=== PATIENT | female | born 1980 | race Caucasian/White ===

== ENCOUNTER 2025-01-01 09:11 | Inpatient (IN) ==
[2025-01-01 10:23] LABS: Hematocrit (blood only) 40.8 % (37.0-47.0); Hemoglobin 14.1 g/dl (12.0-16.0); Immature Granulocytes # (auto) 0.02 K/uL (0.01-0.20); Immature Granulocytes % (auto) 0.2 %; Mean Corpuscular Hemoglobin 29.3 pg (25.0-34.0); Mean Corpuscular Volume 84.6 fL (80.0-100.0); Platelet Count 282 K/uL (130-400); RDW Standard Deviation 38.4 fL (36.4-46.3); Red Blood Count 4.82 M/uL (4.20-5.40); White Blood Count 9.39 K/ul (4.8-10.8)
[2025-01-01 10:31] LABS: Alanine Aminotransferase 13.0 U/L (7-52); Albumin Globulin Ratio 1.7 (0.9-2); Albumin Level 5.2 gm/dl (3.4-5.0); Alkaline Phosphatase 50.0 U/L (34-104); Anion Gap 10.0 (3-11); Bilirubin,Total 1.3 mg/dl (0.2-1.0); Blood Urea Nitrogen 5.0 mg/dl (6-23); Calcium 9.7 mg/dl (8.6-10.3); Carbon Dioxide 26.0 mmol/L (21-32); Chloride 97.0 mmol/L (98-107); Creatinine Clr Calc Pharmacy 83.8 ml/min; Globulin 3.0 gm/dl (2.5-4.0); Glucose 110.0 mg/dl (70-99(Fasting)); Potassium 2.9 mmol/L (3.5-5.1); Sodium 133.0 mmol/L (136-145); Total Protein 8.2 gm/dl (6.0-8.3)
--- NOTE | 2025-01-01 10:32 | Emergency Department Note ---
Impression & Plan Major depression with psychotic features, Acute hyponatremia, Acute hypokalemia, Acute dehydration ED Provider Note NAME: WAQAR SNOW AGE: 44 SEX: F : 1980 ARRIVES VIA: Walk-In INFORMANT: Patient, ED PROVIDER(S): rBian Cramer DO CHIEF COMPLAINT: psychiatric evaluation HPI: This is a 44-year-old female with the PMHx of anxiety and depression presenting to [facility] for further evaluation of psychiatric illness. Patient reports worsening depression and anxiety. She reports intrusive suicidal ideations. She now reports auditory and visual hallucinations. Patient reports largely passive suicidal ideation. No prior suicide attempt. She has been admitted to psychiatric care approximately 4 times in the past. Patient feels like she has been spiraling out of control. Patient feels that she would benefit from inpatient stay. Patient notes anhedonia and lack of appetite and sleep. She reports insomnia. They deny fever or chills. No cough or congestion. Denies chest pain or palpitations. No shortness of breath. They deny abdominal pain, nausea and vomiting. No urinary complaints. No recent changes in bowel movements. Patient denies recent changes in medications or OTC supplements. Patient offers no other complaints, today. ADDITIONAL HISTORY OBTAINED: Per HPI Chronic Medical/Social Conditions Affecting Care: Per HPI PAST MEDICAL HISTORY: See Below PAST SURGICAL HISTORY: See Below FAMILY HISTORY: See Below SOCIAL HISTORY: See Below HOME MEDICATIONS: See Below ALLERGIES: See Below VITALS: See Below PHYSICAL EXAMINATION: GENERAL: Sitting up in bed, alert, well appearing, well nourished, no distress, non-toxic EYE EXAM: normal conjunctiva. PERRL and EOM's grossly intact. OROPHARYNX: no exudate, no erythema, lips, buccal mucosa, and tongue normal and mucous membranes are dry NECK: supple, no nuchal rigidity, no adenopathy, non-tender LUNGS: Clear to auscultation. Normal chest wall mechanics HEART: no murmurs, regular rate, regular rhythm ABDOMEN: abdomen soft, non-tender, no masses, no rebound or guarding. BACK: Back is symmetrical on inspection and there is no deformity, no midline tenderness, no CVA tenderness. SKIN: no rashes and no bruising UPPER EXTREMITIES: upper extremities are grossly normal. LOWER EXTREMITIES: No pitting edema. NEURO EXAM: Normal sensorium, GCS 15, normal speech, no gross weakness of arms, no gross weakness of legs. PSYCH: depressed mood, anxious MEDICAL DECISION MAKING: Differential diagnoses includes but not limited to suicidal ideation, homicidal ideation, hallucinations, depression, anxiety, personality disorder In summary, this is a 44-year-old who presented with suicidal ideations and hallucinations. Differential as above. Nursing notes and pertinent past medical records reviewed. Vital signs reviewed and the patient is afebrile and HDS. History, physical obtained and significant for depression and anxiety with poor access to care as an outpatient. Psychiatric labs including CBC, CMP, ethanol, COVID-19, U tox ordered to evaluate for their symptoms. Labs unremarkable to explain symptoms. Does have mild hyponatremia and hypokalemia. Oral replenishment of potassium ordered. Patient was also given IV fluid resuscitation. Patient was thought to be hypocalcemic and was given IV replenishment. Discussed with her that her calcium was relatively normal and disclosed this to her. 201 to be signed after discussion and informed consent with the patient. Patient is medically appropriate for psychiatric evaluation. Based on the above, including the patient's age, coexisting illnesses, labs, imaging, and exam findings the decision to treat as an inpatient. I discussed my findings with the patient and they understand and agree with the treatment plan. Vitals Q shift ordered. Med rec ordered. Care Management consulted. Diet ordered with suicide precautions and one-to-one precautions. [facility] evaluated the patient for admission and she was subsequently admitted. Consults/Care Managements Discussions: Per [facility] ER treatment provided: See above Procedures: none Critical Care: None The chart was completed utilizing [employer] Speech voice recognition software. Grammatical errors, random word insertions, pronoun errors, and incomplete sentences are an occasional consequence of this system due to software limitations, ambient noise, and hardware issues. Any formal questions or concerns about the content, text, or information contained within the body of this dictation should be directly addressed to the physician for clarification. Past Med/Surg History Problem List (Updated 01/01/25 @ 15:16 by Brian Cramer DO) Acute dehydration (Acute) Acute hypokalemia (Acute) Acute hyponatremia (Acute) Major depression with psychotic features (Acute) Social History Smoking Status: Former smoker Preferred Language: Citizen Of [place] Communication Ability: Effective Vacuum Technician Required: No Beliefs That Will Affect Care: None Feels Safe at Home: Yes Gender Identity: Female Assistive Devices: None Allergies Allergies Allergy/AdvReac Type Severity Reaction Status Date / Time No Known Allergies Allergy Unknown Verified 06/07/06 20:09 Home Meds Home Medications Medication Instructions Recorded Confirmed Multivit/Min/Iron/Fol Ac/Pren ##0 06/08/06 ( Vitamin) Valacyclovir (Valtrex) ##0 06/08/06 Acetaminophen (Tylenol) ##0 06/10/06 Ibuprofen (Advil) ##0 06/10/06 Results & Data (ED) Vital Signs Vital Signs - 24 hr 01/01/25 09:16 01/01/25 11:12 01/01/25 13:00 Temperature 36.5 C Temperature Source Temporal Artery Scan Pulse Rate 93 H Pulse Rate [Finger] 73 71 Respiratory Rate 16 18 18 Respiratory Effort / Characteristics Non-Labored Spontaneous Non-Labored Spontaneous Respiratory Depth Normal Normal Respiratory Pattern Regular Regular Blood Pressure 157/97 H Blood Pressure [Right Arm] 142/98 H 146/89 H Blood Pressure Mean 117 Blood Pressure Mean [Right Arm] 112 108 Pulse Oximetry 99 98 99 Oxygen Delivery Method Room Air Room Air Room Air Sepsis Recent Fever Within 48 Hours No Sepsis New/Unexplained Change in Mental Status N/A Sepsis Action Taken by Nursing No Action Required Laboratory Data 01/01/25 09:36 01/01/25 09:35 Lab Results 01/01/25 01/01/25 01/01/25 Range/Units 09:25 09:35 09:36 WBC 9.39 (4.8-10.8) K/ul RBC 4.82 (4.20-5.40) M/uL Hgb 14.1 (12.0-16.0) g/dl Hct 40.8 (37.0-47.0) % MCV 84.6 (80.0-100.0) fL MCH 29.3 (25.0-34.0) pg MCHC 34.6 (32.0-36.0) g/dL RDW Std Deviation 38.4 (36.4-46.3) fL RDW Coeff of Jani 12.5 (11.5-14.5) % Plt Count 282 (130-400) K/uL MPV 9.8 (9.4-12.4) fL Immature Gran % (Auto) 0.2 % Neut % (Auto) 70.1 % Lymph % (Auto) 23.4 % Pope % (Auto) 5.9 % Eos % (Auto) 0.1 % Baso % (Auto) 0.3 % Neut # (Auto) 6.58 H (1.40-6.50) K/uL Lymph # (Auto) 2.20 (1.20-3.40) K/uL Pope # (Auto) 0.55 (0.11-0.59) K/uL Eos # (Auto) 0.01 (0.00-0.50) K/uL Baso # (Auto) 0.03 (0.00-0.20) K/uL Immature Gran # (Auto) 0.02 (0.01-0.20) K/uL Sodium 133 L (136-145) mmol/L Potassium 2.9 L (3.5-5.1) mmol/L Chloride 97 L (98-107) mmol/L Carbon Dioxide 26 (21-32) mmol/L Anion Gap 10 (3-11) BUN 5 L (6-23) mg/dl Creatinine 0.69 (0.6-1.2) mg/dl Est Cr Clr Drug Dosing 83.8 ml/min eGFR 109.68 BUN/Creatinine Ratio 7.2 L (10-20) Glucose 110 H (70-99(Fasting)) mg/dl Calcium 9.7 (8.6-10.3) mg/dl Total Bilirubin 1.3 H (0.2-1.0) mg/dl AST 21 (13-39) U/L ALT 13 (7-52) U/L Alkaline Phosphatase 50 (34-104) U/L Total Protein 8.2 (6.0-8.3) gm/dl Albumin 5.2 H (3.4-5.0) gm/dl Globulin 3.0 (2.5-4.0) gm/dl Albumin/Globulin Ratio 1.7 (0.9-2) TSH 0.716 (0.300-4.500) uIu/ml Urine Color Yellow Urine Appearance Clear (Clear) Urine pH 7.0 (4.5-7.5) Ur Specific [place] 1.003 (1.000-1.030) Urine Protein Negative (Negative) Urine Glucose (UA) Negative (Negative) Urine Ketones Trace H (Negative) Urine Blood Negative (Negative) Urine Nitrite Negative (Negative) Urine Bilirubin Negative (Negative) Urine Urobilinogen Negative (Negative) Ur Leukocyte Esterase Negative (Negative) Urine Comment Salicylates < 3.0 L (3.0-30) mg/dl Urine Opiates Screen Neg (Neg) Ur Methadone, Qual Neg (Neg) Urine Fentanyl Screen Neg (Neg) Acetaminophen < 3 L (10-30) ug/ml Urine Barbiturates Neg (Neg) Ur Phencyclidine (PCP) Neg (Neg) U Amphetamin/Meth Scrn Neg (Neg) MDMA (Ecstasy) Screen Neg (Neg) U Benzodiazepines Scrn Neg (Neg) Ur Cocaine Metabolite Neg (Neg) U Marijuana (THC) Screen Pos H (Neg) Ethyl Alcohol mg/dL < 10.0 (<10.0) mg/dl SARS-CoV-2, RNA, NAAT NEGATIVE (NEGATIVE) Administered Medications Lamotrigine (Lamotrigine 25 Mg Tab) 25 mg PO QAM [facility]; Protocol Stop: 02/01/25 12:59 Last Admin: 01/02/25 13:22 Dose: 25 mg Documented By: [id number] Magnesium Hydroxide (Magnesium Hydroxide Susp 30 Ml Udc) 30 ml PO DAILY PRN PRN Reason: Constipation Stop: 01/31/25 15:14 Last Admin: 01/02/25 09:11 Dose: 30 ml Documented By: [id number] Admin: 01/01/25 16:45 Dose: 30 ml Documented By: CJG Senna/Docusate Sodium (Docusate Sodium/Senna 50/8.6mg Tab) 1 tab PO BID [facility] Stop: 02/01/25 12:59 Last Admin: 01/02/25 13:21 Dose: 1 tab Documented By: [id number] Discontinued Medications Acetaminophen (Acetaminophen 500 Mg Tab) 1,000 mg PO NOW STA Stop: 01/01/25 10:33 Last Admin: 01/01/25 10:42 Dose: 1,000 mg Documented By: [email or web address] Docusate Sodium (Docusate Sodium 100 Mg Cap) 100 mg PO BID JACY Stop: 01/31/25 20:59 Last Admin: 01/02/25 09:08 Dose: 100 mg Documented By: [id number] Admin: 01/01/25 22:13 Dose: Not Given Documented By: JULIANO Hydroxyzine HCl (Hydroxyzine Hcl 25 Mg Tab) 25 mg PO Q4H PRN PRN Reason: Anxiety Stop: 01/31/25 15:14 Last Admin: 01/02/25 09:08 Dose: 25 mg Documented By: [id number] Sodium Chloride (Nss) 1,000 mls @ 999 mls/hr IV .Q1H1M ONE Stop: 01/01/25 12:26 Last Infusion: 01/01/25 13:27 Dose: Infused Documented By: Admin: 01/01/25 12:23 Dose: 999 mls/hr Documented By: LELIA Calcium Gluconate () 1,000 mg in 60 mls @ 240 mls/hr IV NOW STA Stop: 01/01/25 11:40 Last Infusion: 01/01/25 13:27 Dose: Infused Documented By: Admin: 01/01/25 13:07 Dose: 240 mls/hr Documented By: LELIA Potassium Chloride (Potassium Chloride Crtab 20 Meq Tabcr) 40 meq PO NOW STA Stop: 01/01/25 11:27 Last Admin: 01/01/25 12:24 Dose: 40 meq Documented By: LELIA Potassium Chloride (Potassium Chloride Crtab 20 Meq Tabcr) 40 meq PO NOW STA Stop: 01/01/25 15:17 Last Admin: 01/01/25 16:17 Dose: Not Given Documented By: SRIRAM Discharge Plan Visit Data Chief Complaint: Mental Health Evaluation Stated Complaint: MENTAL HEALTH EVAL ED Provider: Brian Cramer Discharge Problem: Major depression with psychotic features, Acute hyponatremia, Acute hypokalemia, Acute dehydration Patient Disposition: Admitted As Inpatient Condition: Fair Discharge Instructions Interventions: ED Discharge Assessment Last Done: 01/01/25 15:34
[2025-01-01 10:38] LABS: Appearance Urine Clear (Clear); Glucose Urine UA Negative (Negative)
[2025-01-01] MEDS: ACETAMINOPHEN 500 MG TAB PO STA (10:42)
[2025-01-01 10:45] LABS: Thyroid Stimulating Hormone 0.716 uIu/ml (0.300-4.500)
[2025-01-01 10:52] LABS: Acetaminophen < 3 ug/ml (10-30); Salicylate < 3.0 mg/dl (3.0-30)
[2025-01-01 11:02] LABS: Amphetamines+Metham, Urine Neg (Neg); MDMA (Ecstacy), Urine Neg (Neg); Marijuana, Urine Pos (Neg)
[2025-01-01] MEDS: SODIUM CHLORIDE 0.9% 1,000 ML IV ONE (12:23)
[2025-01-01] MEDS: POTASSIUM CHLORIDE CRTAB 20 MEQ TABCR PO STA ×2 (12:24→16:17)
[2025-01-01] MEDS: CALCIUM GLUCONATE 1,000 MG/60 ML BAG IV STA (13:07)
[2025-01-01] MEDS ORDERED: SODIUM CHLORIDE 0.65% NA SOLN 45 ML (OCEAN) PRN (15:15)
[2025-01-01] MEDS ORDERED: ALUMINUM/MAGNESIUM SUSP 30 ML UDC PO PRN (15:15)
[2025-01-01] MEDS ORDERED: BISMUTH SUBSALICYLATE 262 MG CHEW PO PRN (15:15)
[2025-01-01] MEDS ORDERED: ACETAMINOPHEN 325 MG TAB PO PRN (15:15)
[2025-01-01] MEDS: MAGNESIUM HYDROXIDE SUSP 30 ML UDC PO PRN (16:45)
[2025-01-01] MEDS: DOCUSATE SODIUM 100 MG CAP PO SCH (22:13)
--- NOTE | 2025-01-02 09:39 | History & Physical ---
Date of Service January 02, 2025 Impression / Recommendations Impression WAQAR SNOW is a 44-year-old F who currently is unhoused, has a history of Bipolar disorder and PTSD, and was admitted on 01/01/25 15:15 on a 201 voluntary commitment for suicidal ideation without a plan, and auditory hallucinations, in the context of homelessness, use of cannabis and delta 8, and lapse in outpatient psychiatric care. From a psychiatric perspective, Her symptoms fit the diagnosis of yue izoaffective disorder, bipolar type. Presently, she is no manic or hypomanic symptoms to even suggest a mixed episode. She is clearly depressed, and continues to have psychotic symptoms, which from her report are not new onset and have been chronic for at least many months, perhaps even years. Likely, the cannabis/THC usage has complicated this picture as well. I did discuss with her the need to discontinue her use of those substances, she was in agreement with that. Given the level of depression, and her psychiatric history I do not suspect that this is purely substance-induced psychosis though. we discussed several options for medications. I have recommended Abilify, and reviewed risks benefits and possible adverse effects with that medication. She felt much more comfortable going back on Seroquel, and did reports she was stable on it for years prior to discontinuing it this winter. Since she has been off of it for months, Will start at 100 mg tonight and escalate the dose each night as tolerated. I also added low-dose Seroquel (25 mg) every 6 hours as needed for anxiety or distress due to psychosis during the day. She says she has been weaning herself off Lamictal but "feels weird" without it today, so I did initiate 25 mg daily, which will continue for a couple days and then discontinue. Medically, her workup in the emergency room did not suggest any physical reason for her psychiatric symptoms. She did have hypokalemia, but most likely this was a result of her poor p.o. intake due to the depression recently. It was repleted in the emergency room, and we will repeat a BMP tomorrow to make sure it stays stable, since her appetite remains poor. Her medical history is benign, including only surgery for pectus excavated him in the . She does presently have pretty significant constipation, says her last bowel movement was December 26. We have started her on stool softeners and I added senna today. If this is not helpful we will move on the mag citrate, or a GI consult if needed. Finally, psychosocial factors include primarily lack of supports and lack of secure housing for the patient. She had her partner about 2 years ago , and as a result she is also from her daughter who continues to live with the ex. She might have some financial support from her mother, but says they are not close. She will need help securing interim housing, if possible. Overall, I spent a total of 90 minutes on this patients care, including review of chart, review of records, direct evaluation of the patient, counseling the patient, ordering medication, coordination with nursing, interdisciplinary team meeting, and documentation. (1) Schizoaffective disorder, bipolar type: (2) Cannabis abuse: (3) Alcohol use disorder: (4) Opioid use disorder in remission: (5) Acute dehydration: Plan The patient was admitted to the [facility] ([facility]) on q15 min checks (behavioral with suicide precautions) for safety. The patient will participate in group, recreational, and milieu therapies and will be offered additional individual and family sessions as clinically appropriate. Labs/tests ordered: Repeat BMP in morning New medications initiated: Seroquel 100 mg at bedtime, and 25 mg every 6 hours as needed anxiety or psychosis Senokot 1 tab twice daily, starting today Lamictal 25 mg daily Continue the following home medications: none The following PRN medications will be started as well: Tylenol as needed for pain Maalox, Milk of Mag, and Pepto as needed for GI upset Zyprexa and Ativan as needed for agitation only Suicide Risk Level Suicide Risk Level: High-Moderate (q15 min suicide checks) Suicide Risk Level Comments: High-Moderate due to command auditory hallucinations to harm herself, but feels safe in the hospital, able to contract for safety and agrees to let staff know should if plan or intent develops, or if patient feels unable to remain safe. Risk Factors Assessment Do You Have Access To A Gun?: No Protective Factors Assessment Employed: No Psychiatric History Identifying Data WAQAR SNOW is a 44-year-old F who currently is unhoused, has a history of Bipolar disorder and PTSD, and was admitted on 01/01/25 15:15 on a 201 voluntary commitment for suicidal ideation without a plan, and auditory hallucinations, in the context of homelessness, use of cannabis and delta 8, and lapse in outpatient psychiatric care. Chief Complaint "[]". History of Present Illness Patient self-presented to the emergency room yesterday, reporting worsening depression and anxiety. She did report suicidal thoughts prior to admission, with no attempt. She denied having a plan or intent to harm herself, and denied any homicidal ideation. She did also report auditory hallucinations and some delusional thinking. When I met with her today, she reports the auditory hallucinations have been present for a long time, but she has never reported them to a psychiatric provider before. She has a longstanding history of bipolar disorder, and did describe both depressive and manic episodes. She does have auditory hallucinations even when euthymic. The content of those hallucinations has varied, but presently the most predominant voice is that of Scar Simpson. the voice tells her that he loves her and wants to be with her romantically. She says she does believe that she is really in communication with him, but part of her knows that it is not realistic. She has other auditory hallucinations of other voices, mostly male. Some of them were telling her to kill herself. They do not tell her to hurt anyone else. She was becoming more paranoid and having difficulty sleeping as a result. Ultimately, she was driving while sleep deprived, and noticed that the "trees were dripping and turning into monsters." This prompted her to bring herself to the emergency room for further evaluation. She reports that depression has been worsening for months, as she and her partner are broke up 2 years ago. She stayed living in the same house for a year, but then "I could not take it anymore" as she left in November 2023. Since then she has been without secure housing, utilizing a combination of short-term rentals, couch surfing, and sleeping in her car. She says recently she has not been sleeping well, becoming more despondent and anhedonic. She also had a poor appetite with minimal p.o. intake this past week. She reports that although she has been sober from alcohol and opioids for 10 years, she has been using delta 8 and THC recently. She denies daily use and could not specify how frequently she would use it. She denied any other substances, illegal or [id number]. Specifically denied kratom. Patient was previously in psychiatric treatment, but was doing well and so she did not follow-up after April of this past year. She stayed on both her medications (Seroquel and Lamictal) for several months, but ultimately ran out of the Seroquel. She says she has remained on Lamictal but has been cutting it in half) so a total of 50 mg daily) up until recently. She reports she was previously on Seroquel up to 400, but they had been decreasing it and as of her last appointment she was only on 100 mg at bedtime. In the emergency room, she was given IV fluids and oral potassium supplementation. Workup was otherwise normal. Upon admission, nurses reported patient has been superficially pleasant, but generally isolate to her room. She had no agitation overnight. She slept 8 hours. She has not yet attended groups as of this morning. P.o. intake has been poor. When I met with her this a.m., she continues to report severe depression with some thoughts of suicide, mostly in relation to the voices which tell her to kill herself. She could contract for safety, and stated she would be able to reach out to staff if the thoughts get worse. "That is why I am here." Past Psychiatric History Previous Psych History: Previously attended [facility] for outpatient treatment, but is not currently active with any providers. She was previously admitted to [facility] for an intentional overdose in 2014. Does describe a history consistent with past manic episodes, including increased energy with decreased need for sleep, excessive spending, elevated mood, and increased substance use during those times. She typically used alcohol and opioids which would not clearly explain the increased energy or insomnia, and leads me to believe the substance use was further reckless behavior due to lalo. Current Psychiatric Diagnosis: Bipolar, PTSD Previous Psych Admissions: [facility], 2014 Do You Have Access To A Gun?: No History of Previous Suicide Attempt: Yes Describe Attempts in the Past: Intentional overdose Past Medication Trials: Past medication trials of Seroquel (up to 400 mg), and Lamictal (up to 100 mg daily). She denies any history of any other antipsychotics, antidepressants or mood stabilizers after I listed several. Additional Notes: UDS was positive only for THC. Past Head Trauma/Neuro History none Allergies Allergy/AdvReac Type Severity Reaction Status Date / Time No Known Allergies Allergy Unknown Verified 06/07/06 20:09 Home Medications Medication Instructions Recorded Confirmed Type Multivit/Min/Iron/Fol Ac/Pren ##0 06/08/06 History ( Vitamin) Valacyclovir (Valtrex) ##0 06/08/06 History Acetaminophen (Tylenol) ##0 06/10/06 History Ibuprofen (Advil) ##0 06/10/06 History Family History Family History of: Doesn't Know Alcohol History Hx of Alcohol Use Over the Past 12 Months: No AUDIT Total Score: 0 history of alcohol abuse, but has been sober for the last 10 years Smoking Use Have You Smoked or Used Tobacco Products in the Last 30 Days: No Smoking Status: Former smoker Substance History Hx of Prescription Med Misuse Over the Past 12 Months: No Hx of Over the Counter Med Misuse Over the Past 12 Months: No Hx of Inhalent Misuse Over the Past 12 Months: No Hx of Organic Substance Use Over the Past 12 Months: Yes (delta 8/9 daily) Hx of Illegal Substances/Street Drug Use Over Past 12 Months: No Problems as a Result of Past Substance Use: None Identified history of opioid abuse, but has been sober from that for the past 10 years. Reports she has been using cannabis, delta 8 and delta 9 intermittently in recent weeks. Personal History Living Arrangements: Homeless Born In: [place] Childhood: raised by her mother. Father was not involved. She has no siblings. Highest Grade Completed: College Highest Grade Completed Comment: Bachelor's degree in criminal justice from 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 Has not worked in the last 5 years. Reports she does not have SSDI. Has some income from her father's inheritance.) Marital Status: Single Number Of Children: 1 daughter, age 11, who resides with her father (patient's ex) Beliefs That Will Affect Care: None Current Legal Problems: No Hx Legal Problems: No Patient History Medical History (Updated 01/02/25 @ 16:08 by Caty Sierra DO) Opioid use disorder in remission Alcohol use disorder Social History Smoking Status: Former smoker Preferred Language: Beninese Communication Ability: Effective Data Entry Associate Required: No Beliefs That Will Affect Care: None Feels Safe at Home: Yes Gender Identity: Female Assistive Devices: None Review of Systems Review of Systems: Constitutional: No Fever, No Chills, No Night Sweats ENT/Mouth: No Hearing Changes, No Nasal Congestion, No sore throat, No Swallowing Difficulty Eyes: No Vision Changes Cardiovascular: No Chest Pain, No SOB, No Edema, No Palpitations Respiratory: No Cough, No Wheezing, No Dyspnea Gastrointestinal: No Nausea, No Vomiting, No Diarrhea, No Constipation. + poor appetite Urinary: No Frequency, No Hematuria, No Urinary Incontinence, No Dysuria Skin: No Skin Lesions, No Pruritis, No Hair Changes, Neuro: No Weakness, No Numbness, No Paresthesias, No Dizziness, No Headache, No Coordination Changes, No Recent Falls Heme/Lymph: No Bruising, No Bleeding Endocrine: No Polyuria, No Polydipsia, No Temperature Intolerance Physical Exam Psychiatric: Orientation: alert, oriented x 3 and cooperative Apperance: + disheveled Eye Contact: + fair eye contact will look away when distracted by auditory hallucinations. Motor Behavior: steady gait and station and no abnormal motor movements; no psychomotor agitation and no psychomotor retardation Speech: normal rate/rhythm/volume of speech Affect: + constricted affect and mood congruent with affect Mood: + depressed mood and + anxious mood Thought Process: linear/logical thought process and + thought blocking Thought Content: + delusions and + hopelessness Suicidal Thoughts: denies suicidal plan and denies suicidal intent; + reports suicidal thoughts Homicidal Thoughts: denies homicidal thoughts, denies homicidal plan and denies homicidal intent Hallucinations: + auditory hallucinations and + visual hallucinations See HPI for description Cognition: recent memory grossly intact, remote memory grossly intact and language grossly intact internal stimuli causes poor attention at times. Estimated Intelligence: consistent with education level Insight: + limited insight Partially believes that she is in communication with Scar simpson. But is able to entertain the idea that it might be a mental health symptom. Judgment: + fair judgement demonstrated by patient seeking out treatment when mental health symptoms worsened. Vital Signs (Past 24 Hours): Last Vital Signs Temp 36.4 C L 01/02/25 06:22 Pulse 83 01/02/25 06:22 Resp 18 01/02/25 06:22 BP 143/90 H 01/02/25 06:22 Pulse Ox 99 01/01/25 17:16 O2 Del Method Room Air 01/01/25 17:16 Physical Examination: A physical exam was performed in the ED by Dr. Cramer for the purposes of medical clearance. I accept that physical as correct and adequate for the purposes of the inpatient physical exam. Results & Data ([facility]) Laboratory Results Laboratory Results - last 24 hr 01/01/25 01/01/25 01/01/25 09:25 09:35 09:36 WBC 9.39 RBC 4.82 Hgb 14.1 Hct 40.8 MCV 84.6 MCH 29.3 MCHC 34.6 RDW Std Deviation 38.4 RDW Coeff of Jani 12.5 Plt Count 282 MPV 9.8 Immature Gran % (Auto) 0.2 Neut % (Auto) 70.1 Lymph % (Auto) 23.4 Power % (Auto) 5.9 Eos % (Auto) 0.1 Baso % (Auto) 0.3 Neut # (Auto) 6.58 H Lymph # (Auto) 2.20 Power # (Auto) 0.55 Eos # (Auto) 0.01 Baso # (Auto) 0.03 Immature Gran # (Auto) 0.02 Sodium 133 L Potassium 2.9 L Chloride 97 L Carbon Dioxide 26 Anion Gap 10 BUN 5 L Creatinine 0.69 Est Cr Clr Drug Dosing 83.8 eGFR 109.68 BUN/Creatinine Ratio 7.2 L Glucose 110 H Calcium 9.7 Total Bilirubin 1.3 H AST 21 ALT 13 Alkaline Phosphatase 50 Total Protein 8.2 Albumin 5.2 H Globulin 3.0 Albumin/Globulin Ratio 1.7 TSH 0.716 Urine Color Yellow Urine Appearance Clear Urine pH 7.0 Ur Specific [place] 1.003 Urine Protein Negative Urine Glucose (UA) Negative Urine Ketones Trace H Urine Blood Negative Urine Nitrite Negative Urine Bilirubin Negative Urine Urobilinogen Negative Ur Leukocyte Esterase Negative Urine Comment Salicylates < 3.0 L Urine Opiates Screen Neg Ur Methadone, Qual Neg Urine Fentanyl Screen Neg Acetaminophen < 3 L Urine Barbiturates Neg Ur Phencyclidine (PCP) Neg U Amphetamin/Meth Scrn Neg MDMA (Ecstasy) Screen Neg U Benzodiazepines Scrn Neg Ur Cocaine Metabolite Neg U Marijuana (THC) Screen Pos H U Marijuana THC Carboxy Pending Drug Screen Comment Pending Ethyl Alcohol mg/dL < 10.0 SARS-CoV-2, RNA, NAAT NEGATIVE Current Inpatient Medications Current Inpatient Medications: Current Inpatient Medications Acetaminophen (Acetaminophen 325 Mg Tab) 650 mg PO Q4H PRN PRN Reason: Headache or Minor Fever Stop: 01/31/25 15:14 Al Hydrox/Mg Hydrox/Simethicone (Aluminum/Magnesium Susp 30 Ml Udc) 30 ml PO Q4H PRN PRN Reason: GI Upset Stop: 01/31/25 15:14 Bismuth Subsalicylate (Bismuth Subsalicylate 262 Mg Chew) 2 tab PO Q30M PRN PRN Reason: Loose Stool/Diarrhea Stop: 01/31/25 15:14 Docusate Sodium (Docusate Sodium 100 Mg Cap) 100 mg PO BID YUE Stop: 01/31/25 20:59 Last Admin: 01/02/25 09:08 Dose: 100 mg Hydroxyzine HCl (Hydroxyzine Hcl 25 Mg Tab) 50 mg PO HSZ PRN PRN Reason: Insomnia Stop: 01/31/25 15:14 Hydroxyzine HCl (Hydroxyzine Hcl 25 Mg Tab) 25 mg PO Q4H PRN PRN Reason: Anxiety Stop: 01/31/25 15:14 Last Admin: 01/02/25 09:08 Dose: 25 mg Magnesium Hydroxide (Magnesium Hydroxide Susp 30 Ml Udc) 30 ml PO DAILY PRN PRN Reason: Constipation Stop: 01/31/25 15:14 Last Admin: 01/02/25 09:11 Dose: 30 ml Olanzapine (Olanzapine 5 Mg Tablet) 5 mg PO Q6 PRN PRN Reason: Agitation Stop: 01/31/25 16:09 Sodium Chloride (Sodium Chloride 0.65% Na Soln 45 Ml ([place])) 1 - 2 sprays NA PRN PRN PRN Reason: Nasal Dryness/Congestion Stop: 01/31/25 15:14
[2025-01-02] MEDS: DOCUSATE SODIUM/SENNA 50/8.6MG TAB PO SCH (13:21)
[2025-01-02] MEDS: lamoTRIgine 25 MG TAB PO SCH (13:22)
[2025-01-03 07:58] LABS: Anion Gap 9.0 (3-11); Blood Urea Nitrogen 6.0 mg/dl (6-23); Calcium 9.3 mg/dl (8.6-10.3); Carbon Dioxide 27.0 mmol/L (21-32); Chloride 106.0 mmol/L (98-107); Creatinine Clr Calc Pharmacy 76.1 ml/min; Glucose 93.0 mg/dl (70-99(Fasting)); Potassium 3.6 mmol/L (3.5-5.1); Sodium 142.0 mmol/L (136-145)
--- NOTE | 2025-01-03 08:57 | Psychiatric Progress Note ---
Date of Service January 03, 2025 Impression / Recommendations Impression WAQAR SNOW is a 44-year-old F who currently is unhoused, has a history of Bipolar disorder and PTSD, and was admitted on 01/01/25 15:15 on a 201 voluntary commitment for suicidal ideation without a plan, and auditory hallucinations, in the context of homelessness, use of cannabis and delta 8, and lapse in outpatient psychiatric care. From a psychiatric perspective, Her symptoms fit the diagnosis of jacy izoaffective disorder, bipolar type. Presently, she is no manic or hypomanic symptoms to even suggest a mixed episode. She is clearly depressed, and continues to have psychotic symptoms, which from her report are not new onset and have been chronic for at least many months, perhaps even years. Likely, the cannabis/THC usage has complicated this picture as well. I did discuss with her the need to discontinue her use of those substances, she was in agreement with that. Given the level of depression, and her psychiatric history I do not suspect that this is purely substance-induced psychosis though. we discussed several options for medications. I have recommended Abilify, and reviewed risks benefits and possible adverse effects with that medication. She felt much more comfortable going back on Seroquel, and did reports she was stable on it for years prior to discontinuing it this winter. Since she has been off of it for months, Will start at 100 mg tonight and escalate the dose each night as tolerated. I also added low-dose Seroquel (25 mg) every 6 hours as needed for anxiety or distress due to psychosis during the day. She says she has been weaning herself off Lamictal but "feels weird" without it today, so I did initiate 25 mg daily, which will continue for a couple days and then discontinue. Medically, her workup in the emergency room did not suggest any physical reason for her psychiatric symptoms. She did have hypokalemia, but most likely this was a result of her poor p.o. intake due to the depression recently. It was repleted in the emergency room, and we will repeat a BMP tomorrow to make sure it stays stable, since her appetite remains poor. Her medical history is benign, including only surgery for pectus excavated him in the . She does presently have pretty significant constipation, says her last bowel movement was December 26. We have started her on stool softeners and I added senna today. If this is not helpful we will move on the mag citrate, or a GI consult if needed. Finally, psychosocial factors include primarily lack of supports and lack of secure housing for the patient. She had her partner about 2 years ago , and as a result she is also from her daughter who continues to live with the ex. She might have some financial support from her mother, but says they are not close. She will need help securing interim housing, if possible. Overall, I spent a total of 35 minutes on this patients care, including review of chart, direct evaluation of the patient, counseling the patient, ordering medication and labs, coordination with nursing, interdisciplinary team meeting, and documentation. (1) Schizoaffective disorder, bipolar type: (2) Cannabis abuse: (3) Alcohol use disorder: (4) Opioid use disorder in remission: (5) Acute dehydration: Plan 01/03/25: Patient's BMP this morning was within normal limits- Potassium level remains stable. I did order a fasting lipid panel, fasting glucose and hemoglobin A1c for tomorrow morning, since she is going back on Seroquel. Target Seroquel dose is 300 to 600 mg for bipolar depression, so I am increasing the Seroquel to 200 mg tonight, and if tolerated to 300 mg the night after that. She will continue Lamictal 25 for today and then it will discontinue after tomorrow's dose. Encourage participation in programming today, and working on her treatment/safety plan for after discharge as well. Since she did successfully have a BM, I discontinued the senna and left the Colace as a stool softener only. 01/02/25: The patient was admitted to the [facility] on q15 min checks (behavioral with suicide precautions) for safety. The patient will participate in group, recreational, and milieu therapies and will be offered additional individual and family sessions as clinically appropriate. -Labs/tests ordered: Repeat BMP in morning -New medications initiated: Seroquel 100 mg at bedtime, and 25 mg every 6 hours as needed anxiety or psychosis Senokot 1 tab twice daily, starting today Lamictal 25 mg daily Suicide Risk Level Suicide Risk Level: High-Moderate (q15 min suicide checks) Suicide Risk Level Comments: High-Moderate due to command auditory hallucinations to harm herself, but feels safe in the hospital, able to contract for safety and agrees to let staff know should if plan or intent develops, or if patient feels unable to remain safe. Risk Factors Assessment Do You Have Access To A Gun?: No Protective Factors Assessment Employed: No Interval History Identifying Information WAQAR SNOW is a 44-year-old F who currently is unhoused, has a history of Bipolar disorder and PTSD, and was admitted on 01/01/25 15:15 on a 201 voluntary commitment for suicidal ideation without a plan, and auditory hallucinations, in the context of homelessness, use of cannabis and delta 8, and lapse in outpatient psychiatric care. Chief Complaint "[]". Review of Systems Sleep Information Total Hours of Sleep: 7.5 Sleep Comments: Went to sleep early in evening and awoke early in morning Meal Information Percent Meal Consumed - Breakfast: 0 Percent Meal Consumed - Lunch: 10 Percent Meal Consumed - Dinner: 5 Subjective Subjective Patient was seen & assessed and interval progress reviewed with treatment team. per nursing report, patient slept 7-1/2 hours. She had a notably poor appetite yesterday, but was eating better at breakfast this a.m. Yesterday she was noted to be tearful and did decline attending programming. This a.m., she ap pears brighter and has been observed talking to peers. She reportedly had a small BM yesterday. I met with the patient in her room. She says she got good sleep last night and her appetite has improved. This has led to her feeling "generally better". Her mood is "pretty good", and anxiety is more minimal. The auditory hallucinations are still present although not as loud. She says they have the same content, including both the Scar musk voice, and the other voices that tend to be more criticizing of her. She denies any command auditory hallucinations to hurt herself or others. They are not giving her any commands at all actually. She denies any suicidal ideation. She is starting to feel more hopeful about the future. At this point, she is on sure where she will be living after discharge. She does report she had a "definitely successful" bowel movement. Denies any nausea. no tremor or abnormal movements. No sedation or excessive fatigue. No other physical complaints. Physical Exam Psychiatric Orientation: alert, oriented x 3 and cooperative Apperance: appropriately dressed and appropriately groomed Eye Contact: good eye contact Motor Behavior: steady gait and station and no abnormal motor movements; n EPS and n akathisia Speech: normal rate/rhythm/volume of speech Affect: euthymic affect and mood congruent with affect Full range, and brighter. No lability. Mood: + depressed mood and + anxious mood both depression and anxiety are improving, but still present Thought Process: goal directed thought process and linear/logical thought process no thought blocking during our encounter today Thought Content: + delusions Suicidal Thoughts: denies suicidal thoughts, denies suicidal plan and denies suicidal intent Homicidal Thoughts: denies homicidal thoughts, denies homicidal plan and denies homicidal intent Hallucinations: + auditory hallucinations; no visual hallucinations Cognition: recent memory grossly intact, remote memory grossly intact, attention grossly intact and language grossly intact less distracted by internal stimuli today Estimated Intelligence: consistent with education level Insight: + fair insight Judgment: + fair judgement Vital Signs (Past 24 Hours) Last Vital Signs Temp 36.8 C 01/03/25 06:19 Pulse 87 01/03/25 06:19 Resp 18 01/03/25 06:19 BP 141/97 H 01/03/25 06:19 Pulse Ox 99 01/01/25 17:16 O2 Del Method Room Air 01/01/25 17:16 A physical exam was performed in the ED by Dr. Cramer for the purposes of medical clearance. I accept that physical as correct and adequate for the purposes of the inpatient physical exam. Results & Data ([facility]) Laboratory Results Laboratory Results - last 24 hr 01/03/25 07:06 Sodium 142 D Potassium 3.6 D Chloride 106 Carbon Dioxide 27 Anion Gap 9 BUN 6 Creatinine 0.76 Est Cr Clr Drug Dosing 76.1 eGFR 99.03 BUN/Creatinine Ratio 7.9 L Glucose 93 Calcium 9.3 Current Inpatient Medications Current Inpatient Medications: Current Inpatient Medications Acetaminophen (Acetaminophen 325 Mg Tab) 650 mg PO Q4H PRN PRN Reason: Headache or Minor Fever Stop: 01/31/25 15:14 Al Hydrox/Mg Hydrox/Simethicone (Aluminum/Magnesium Susp 30 Ml Udc) 30 ml PO Q4H PRN PRN Reason: GI Upset Stop: 01/31/25 15:14 Bismuth Subsalicylate (Bismuth Subsalicylate 262 Mg Chew) 2 tab PO Q30M PRN PRN Reason: Loose Stool/Diarrhea Stop: 01/31/25 15:14 Lamotrigine (Lamotrigine 25 Mg Tab) 25 mg PO QAM JACY; Protocol Stop: 02/01/25 12:59 Last Admin: 01/03/25 08:36 Dose: 25 mg Magnesium Hydroxide (Magnesium Hydroxide Susp 30 Ml Udc) 30 ml PO DAILY PRN PRN Reason: Constipation Stop: 01/31/25 15:14 Last Admin: 01/02/25 09:11 Dose: 30 ml Olanzapine (Olanzapine 5 Mg Tablet) 5 mg PO Q6 PRN PRN Reason: Agitation Stop: 01/31/25 16:09 Quetiapine Fumarate (Quetiapine Fumarate 25 Mg Tablet) 25 mg PO Q6H PRN PRN Reason: anxiety or psychosis Stop: 02/01/25 12:59 Quetiapine Fumarate (Quetiapine Fumarate 100 Mg Tablet) 100 mg PO HS JACY Stop: 02/01/25 21:59 Last Admin: 01/02/25 20:17 Dose: 100 mg Senna/Docusate Sodium (Docusate Sodium/Senna 50/8.6mg Tab) 1 tab PO BID JACY Stop: 02/01/25 12:59 Last Admin: 01/03/25 08:36 Dose: 1 tab Sodium Chloride (Sodium Chloride 0.65% Na Soln 45 Ml ([place])) 1 - 2 sprays NA PRN PRN PRN Reason: Nasal Dryness/Congestion Stop: 01/31/25 15:14 Mental Health & Subst Abuse Tx Therapist Name of Therapist: N/A Hand Therapist Name of Hand Therapist: N/A
[2025-01-03] MEDS: DOCUSATE SODIUM 100 MG CAP PO SCH (20:41)
[2025-01-04 08:17] LABS: Cholesterol 164.0 mg/dl (0-200); HDL Cholesterol 47.0 mg/dl; Triglycerides 52.0 mg/dl (0-150)
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
[2025-01-04 09:06] LABS: Hemoglobin A1C 5.4 % (4.5-5.6)
--- NOTE | 2025-01-05 08:41 | Psychiatric Progress Note ---
Date of Service January 05, 2025 Impression / Recommendations Impression WAQAR SNOW is a 44-year-old F who currently is unhoused, has a history of Bipolar disorder and PTSD, and was admitted on 01/01/25 15:15 on a 201 voluntary commitment for suicidal ideation without a plan, and auditory hallucinations, in the context of homelessness, use of cannabis and delta 8, and lapse in outpatient psychiatric care. From a psychiatric perspective, Her symptoms fit the diagnosis of yue izoaffective disorder, bipolar type. Presently, she has no manic or hypomanic symptoms to even suggest a mixed episode. She is clearly depressed, and continues to have psychotic symptoms, which from her report are not new onset and have been chronic for at least many months, perhaps even years. Likely, the cannabis/THC usage has complicated this picture as well. I did discuss with her the need to discontinue her use of those substances, she was in agreement with that. Medically, her workup in the emergency room did not suggest any physical reason for her psychiatric symptoms. She did on admission have pretty significant constipation, which has now resolved. Finally, psychosocial factors include primarily lack of supports and lack of secure housing for the patient. She had her partner about 2 years ago, and as a result she is also from her daughter who continues to live with the ex. She might have some financial support from her mother, but says they are not close. She will need help securing interim housing, if possible. Today, I spent a total of 35 minutes on this patients care, including review of chart, direct evaluation of the patient, counseling the patient, ordering medication and labs, coordination with nursing, interdisciplinary team meeting, and documentation. (1) Schizoaffective disorder, bipolar type: (2) Cannabis abuse: (3) Alcohol use disorder: (4) Opioid use disorder in remission: (5) Acute dehydration: Plan 01/06/25: mood and auditory hallucinations are improving. Paranoia has resolved. Increase Abilify to 10 mg for ongoing auditory hallucinations and mood stabilization. Continue Vistaril as needed for sleep, which was effective. She is off Seroquel and off Lamictal at this point. Again encourage patient to attend groups and participate to the best of her ability. Planning for discharge on Friday. 01/04/25: Discussed R/B/AE of switching to Abilify. Discussion included but was not limited to EPS, TD, and metabolic syndrome. Pt agreeable to trial. Start 5mg today, and increase to 10mg if tolerated. D/c seroquel. For sleep, discussed trazodone vs. remeron vs. vistaril. Reviewed risks, benefits and potential adverse effects of each option. Pt was previously on trazodone, which caused vivid dreams. Pt opted for vistaril - start 50mg QHS PRN, with repeat dose available if ineffective. Encouraged pt to attend groups and participate to the best of her ability. 01/03/25: Patient's BMP this morning was within normal limits- Potassium level remains stable. I did order a fasting lipid panel, fasting glucose and hemoglobin A1c for tomorrow morning, since she is going back on Seroquel. Target Seroquel dose is 300 to 600 mg for bipolar depression, so I am increasing the Seroquel to 200 mg tonight, and if tolerated to 300 mg the night after that. She will continue Lamictal 25 for today and then it will discontinue after tomorrow's dose. Encourage participation in programming today, and working on her treatment/safety plan for after discharge as well. Since she did successfully have a BM, I discontinued the senna and left the Colace as a stool softener only. 01/02/25: The patient was admitted to the [facility] ([facility] mental health unit) on q15 min checks (behavioral with suicide precautions) for safety. The patient will participate in group, recreational, and milieu therapies and will be offered additional individual and family sessions as clinically appropriate. -Labs/tests ordered: Repeat BMP in morning -New medications initiated: Seroquel 100 mg at bedtime, and 25 mg every 6 hours as needed anxiety or psychosis Senokot 1 tab twice daily, starting today Lamictal 25 mg daily Suicide Risk Level Suicide Risk Level: Moderate (q15 min suicide checks) Suicide Risk Level Comments: Low moderate - no SI but AH continue, and the voices had told her previously to kill herself. No command auditory hallucinations for several days. She feels safe in the hospital, able to contract for safety and agrees to let staff know should if plan or intent develops, or if patient feels unable to remain safe. Risk Factors Assessment Do You Have Access To A Gun?: No Protective Factors Assessment Employed: No Interval History Identifying Information WAQAR SNOW is a 44-year-old F who currently is unhoused, has a history of Bipolar disorder and PTSD, and was admitted on 01/01/25 15:15 on a 201 voluntary commitment for suicidal ideation without a plan, and auditory hallucinations, in the context of homelessness, use of cannabis and delta 8, and lapse in outpatient psychiatric care. Chief Complaint "[]". Review of Systems Sleep Information Total Hours of Sleep: 7.5 Sleep Comments: Went to sleep early in evening and awoke early in morning Meal Information Percent Meal Consumed - Breakfast: 95 Percent Meal Consumed - Lunch: 90 Percent Meal Consumed - Dinner: 75 Subjective Subjective Patient was seen & assessed and interval progress reviewed with nursing and social work. per nursing report, patient is consistently eating and showering. She does not appear to be responding to internal stimuli at any time. She attends morning groups, but declines other programming. She rated her mood 6 out of 10 and described as "content". She has declined offers for case management referral, therapy referral, and support meeting. I met with patient today in her room. She reported "I just feel like I am in a better mood." She says she feels better off the Seroquel. No side effects with her first dose of Abilify today. She denies suicidal ideation. Denies significant anxiety. She has no GI upset, tremor, headache or other symptoms this morning. She says auditory hallucinations are lessening but still pres ent. No more visual hallucinations since admission. No paranoia. Less fixated on Scar Musk. I discussed with her the possibility of discharge tomorrow, since she is stabilizing and does not need to stay for further therapeutic interventions, since she has been declining attendance. She requested an additional day to make sure she continues to tolerate Abilify. We could take that day to increase the dose to 10 mg, which is more typically a therapeutic dose especially for psychotic symptoms. She was agreeable to this adjustment. Physical Exam Psychiatric Orientation: alert, oriented x 3 and cooperative Apperance: appropriately dressed and appropriately groomed Eye Contact: good eye contact Motor Behavior: steady gait and station and no abnormal motor movements; n EPS and n akathisia Speech: normal rate/rhythm/volume of speech Affect: euthymic affect and mood congruent with affect Euthymic Thought Process: goal directed thought process, linear/logical thought process and clear/coherent thought process Thought Content: no preoccupation, not paranoid and no delusions Suicidal Thoughts: denies suicidal thoughts, denies suicidal plan and denies suicidal intent Homicidal Thoughts: denies homicidal thoughts, denies homicidal plan and denies homicidal intent Hallucinations: + auditory hallucinations; no visual hallucinations Cognition: recent memory grossly intact, remote memory grossly intact, attention grossly intact and language grossly intact Estimated Intelligence: consistent with education level Insight: + fair insight Judgment: + fair judgement Vital Signs (Past 24 Hours) Last Vital Signs Temp 36.9 C 01/05/25 06:25 Pulse 58 L 01/05/25 06:26 Resp 16 01/05/25 06:25 BP 131/86 01/05/25 06:26 Pulse Ox 99 01/01/25 17:16 O2 Del Method Room Air 01/01/25 17:16 Results & Data ([facility]) Laboratory Results Laboratory Results - last 24 hr 01/04/25 07:32 Estimat Average Glucose 108 Hemoglobin A1c 5.4 Current Inpatient Medications Current Inpatient Medications: Current Inpatient Medications Acetaminophen (Acetaminophen 325 Mg Tab) 650 mg PO Q4H PRN PRN Reason: Headache or Minor Fever Stop: 01/31/25 15:14 Al Hydrox/Mg Hydrox/Simethicone (Aluminum/Magnesium Susp 30 Ml Udc) 30 ml PO Q4H PRN PRN Reason: GI Upset Stop: 01/31/25 15:14 Aripiprazole (Aripiprazole 5 Mg Tab) 5 mg PO QAM YUE Stop: 02/04/25 08:59 Bismuth Subsalicylate (Bismuth Subsalicylate 262 Mg Chew) 2 tab PO Q30M PRN PRN Reason: Loose Stool/Diarrhea Stop: 01/31/25 15:14 Docusate Sodium (Docusate Sodium 100 Mg Cap) 100 mg PO BID YUE Stop: 02/02/25 20:59 Last Admin: 01/04/25 20:16 Dose: 100 mg Hydroxyzine HCl (Hydroxyzine Hcl 25 Mg Tab) 50 mg PO HSZ PRN PRN Reason: Insomnia Stop: 02/03/25 16:03 Hydroxyzine HCl (Hydroxyzine Hcl 25 Mg Tab) 25 mg PO Q4H PRN PRN Reason: Anxiety Stop: 02/03/25 16:03 Magnesium Hydroxide (Magnesium Hydroxide Susp 30 Ml Udc) 30 ml PO DAILY PRN PRN Reason: Constipation Stop: 01/31/25 15:14 Last Admin: 01/02/25 09:11 Dose: 30 ml Olanzapine (Olanzapine 5 Mg Tablet) 5 mg PO Q6 PRN PRN Reason: Agitation Stop: 01/31/25 16:09 Sodium Chloride (Sodium Chloride 0.65% Na Soln 45 Ml ([place])) 1 - 2 sprays NA PRN PRN PRN Reason: Nasal Dryness/Congestion Stop: 01/31/25 15:14 Mental Health & Subst Abuse Tx Psychiatrist Name of Psychiatrist: Howie Monroe Psychiatrist's Date Of Appointment With Psychiatric Provider: 02/02/2025 Time of Appointment with Psychiatrist: 9:30a Psychiatric Appointment Comment: $25 copay Therapist Name of Therapist: N/A [employer] Name of News Internship: N/A Post Discharge Appointments Contact Information Discharge
[2025-01-05] MEDS: ARIPiprazole 5 MG TAB PO SCH (08:58)
--- NOTE | 2025-01-06 08:40 | Psychiatric Progress Note ---
Date of Service January 06, 2025 Impression / Recommendations Impression WAQAR SNOW is a 44-year-old F who currently is unhoused, has a history of Bipolar disorder and PTSD, and was admitted on 01/01/25 15:15 on a 201 voluntary commitment for suicidal ideation without a plan, and auditory hallucinations, in the context of homelessness, use of cannabis and delta 8, and lapse in outpatient psychiatric care. From a psychiatric perspective, Her symptoms fit the diagnosis of yue izoaffective disorder, bipolar type. Presently, she has no manic or hypomanic symptoms to even suggest a mixed episode. She is clearly depressed, and continues to have psychotic symptoms, which from her report are not new onset and have been chronic for at least many months, perhaps even years. Likely, the cannabis/THC usage has complicated this picture as well. I did discuss with her the need to discontinue her use of those substances, she was in agreement with that. Medically, her workup in the emergency room did not suggest any physical reason for her psychiatric symptoms. She did on admission have pretty significant constipation, which has now resolved. Finally, psychosocial factors include primarily lack of supports and lack of secure housing for the patient. She had her partner about 2 years ago, and as a result she is also from her daughter who continues to live with the ex. She might have some financial support from her mother, but says they are not close. She will need help securing interim housing, if possible. Today, I spent a total of 35 minutes on this patients care, including review of chart, direct evaluation of the patient, counseling the patient, ordering medication and labs, coordination with nursing, interdisciplinary team meeting, and documentation. (1) Schizoaffective disorder, bipolar type: (2) Cannabis abuse: (3) Alcohol use disorder: (4) Opioid use disorder in remission: (5) Acute dehydration: Plan 01/06/2025: she is so far tolerating Abilify at the higher dose. Reminded her she can take a lower dose of Vistaril overnight if she wakes up and cannot fall back asleep. Auditory hallucinations continue to improve. Mood is euthymic and paranoia remains resolved. Continue current medications and treatment. Planning for discharge tomorrow. 01/05/25: mood and auditory hallucinations are improving. Paranoia has resolved. Increase Abilify to 10 mg for ongoing auditory hallucinations and mood stabilization. Continue Vistaril as needed for sleep, which was effective. She is off Seroquel and off Lamictal at this point. Again encourage patient to attend groups and participate to the best of her ability. Planning for discharge on Friday. 01/04/25: Discussed R/B/AE of switching to Abilify. Discussion included but was not limited to EPS, TD, and metabolic syndrome. Pt agreeable to trial. Start 5mg today, and increase to 10mg if tolerated. D/c seroquel. For sleep, discussed trazodone vs. remeron vs. vistaril. Reviewed risks, benefits and potential adverse effects of each option. Pt was previously on trazodone, which caused vivid dreams. Pt opted for vistaril - start 50mg QHS PRN, with repeat dose available if ineffective. Encouraged pt to attend groups and participate to the best of her ability. 01/03/25: Patient's BMP this morning was within normal limits- Potassium level remains stable. I did order a fasting lipid panel, fasting glucose and hemoglobin A1c for tomorrow morning, since she is going back on Seroquel. Target Seroquel dose is 300 to 600 mg for bipolar depression, so I am increasing the Seroquel to 200 mg tonight, and if tolerated to 300 mg the night after that. She will continue Lamictal 25 for today and then it will discontinue after tomorrow's dose. Encourage participation in programming today, and working on her treatment/safety plan for after discharge as well. Since she did successfully have a BM, I discontinued the senna and left the Colace as a stool softener only. 01/02/25: The patient was admitted to the [facility] ([facility]) on q15 min checks (behavioral with suicide precautions) for safety. The patient will participate in group, recreational, and milieu therapies and will be offered additional individual and family sessions as clinically appropriate. -Labs/tests ordered: Repeat BMP in morning -New medications initiated: Seroquel 100 mg at bedtime, and 25 mg every 6 hours as needed anxiety or psychosis Senokot 1 tab twice daily, starting today Lamictal 25 mg daily Inventory Assets Strengths: Help seeking, self-presented to the emergency room relative financial stability Needs: Insecure housing Treatment nonadherence Lack of outpatient providers Lack of social supports Substance use Suicide Risk Level Suicide Risk Level: Low (q15 min observation checks) Suicide Risk Level Comments: Low moderate - no SI. AH continue but are mild, no longer command in nature. She feels safe in the hospital, able to contract for safety and agrees to let staff know should if plan or intent develops, or if patient feels unable to remain safe. Risk Factors Assessment Male: No : Yes Do You Have Access To A Gun?: No Health Problems: No Mental Health Diagnoses: Yes Substance Use Disorders: Yes Previous Attempt: Yes Family History of Suicide: No Previous Psychiatric Hospitalization: Yes Hopelessness: No Protective Factors Assessment : No Responsible for Young Children: No Employed: No Stable Relationships: No Supportive Family: No Good Rapport with Provider: No Interval History Identifying Information WAQAR SNOW is a 44-year-old F who currently is unhoused, has a history of Bipolar disorder and PTSD, and was admitted on 01/01/25 15:15 on a 201 voluntary commitment for suicidal ideation without a plan, and auditory hallucinations, in the context of homelessness, use of cannabis and delta 8, and lapse in outpatient psychiatric care. Chief Complaint "[]". Review of Systems Sleep Information Total Hours of Sleep: 5.75 Sleep Comments: Went to sleep early in evening and awoke early in morning Meal Information Percent Meal Consumed - Breakfast: 75 Percent Meal Consumed - Lunch: 75 Percent Meal Consumed - Dinner: 85 Subjective Subjective Patient was seen & assessed and interval progress reviewed with nursing and social work Per nursing report, patient slept 5-1/2 hours and was up earlier this morning. She did attend all groups yesterday, but left some early. She reported mood 6 to 7 out of 10, and described it as "neutral" she reports feeling more awake and less sluggish. She had a positive phone call with her daughter. I met with the patient in her room. She reports she woke up around 3 AM, and could not fall back asleep for some time. She did take Vistaril at bedtime and felt it helped her fall asleep though. She reports chronic sleep problems, predating this mental health episode. She says her mood is "pretty good today." Just feels tired. She continues to have mild auditory hallucinations, says they are far away and less convincing. She no longer believes it is Scar simpson actually talking to her. Denies suicidal thoughts. No HI or command auditory hallucinations. She is future oriented and looking forward to discharge. She plans to get a short-term rental to stay in upon discharge for a while. She will choose a pharmacy nearby. She denies akathisia, tremor or abnormal movements. Denies GI upset such as nausea vomiting diarrhea or constipation. No palpitations. No chest pain or shortness of breath. Physical Exam Psychiatric Orientation: alert, oriented x 3 and cooperative Apperance: appropriately dressed and appropriately groomed Eye Contact: good eye contact Motor Behavior: steady gait and station and no abnormal motor movements; no psychomotor agitation, no psychomotor retardation, n EPS and n akathisia Speech: normal rate/rhythm/volume of speech Affect: euthymic affect and mood congruent with affect Euthymic Thought Process: goal directed thought process, linear/logical thought process and clear/coherent thought process Thought Content: reality based without delusions Suicidal Thoughts: denies suicidal thoughts, denies suicidal plan and denies suicidal intent Homicidal Thoughts: denies homicidal thoughts, denies homicidal plan and denies homicidal intent Hallucinations: + auditory hallucinations improving Cognition: recent memory grossly intact, remote memory grossly intact, attention grossly intact and language grossly intact Estimated Intelligence: consistent with education level Insight: + fair insight Judgment: + fair judgement Vital Signs (Past 24 Hours) Last Vital Signs Temp 36.7 C 01/06/25 06:15 Pulse 71 01/06/25 06:16 Resp 18 01/06/25 06:15 BP 144/95 H 01/06/25 06:16 Pulse Ox 99 01/01/25 17:16 O2 Del Method Room Air 01/01/25 17:16 A physical exam was performed in the ED by Dr. Cramer for the purposes of medical clearance. I accept that physical as correct and adequate for the purposes of the inpatient physical exam. Results & Data ([facility]) Current Inpatient Medications Current Inpatient Medications: Current Inpatient Medications Acetaminophen (Acetaminophen 325 Mg Tab) 650 mg PO Q4H PRN PRN Reason: Headache or Minor Fever Stop: 01/31/25 15:14 Al Hydrox/Mg Hydrox/Simethicone (Aluminum/Magnesium Susp 30 Ml Udc) 30 ml PO Q4H PRN PRN Reason: GI Upset Stop: 01/31/25 15:14 Aripiprazole (Aripiprazole 10 Mg Tab) 10 mg PO QAM YUE Stop: 02/05/25 08:59 Bismuth Subsalicylate (Bismuth Subsalicylate 262 Mg Chew) 2 tab PO Q30M PRN PRN Reason: Loose Stool/Diarrhea Stop: 01/31/25 15:14 Docusate Sodium (Docusate Sodium 100 Mg Cap) 100 mg PO BID YUE Stop: 02/02/25 20:59 Last Admin: 01/05/25 19:54 Dose: 100 mg Hydroxyzine HCl (Hydroxyzine Hcl 25 Mg Tab) 50 mg PO HSZ PRN PRN Reason: Insomnia Stop: 02/03/25 16:03 Hydroxyzine HCl (Hydroxyzine Hcl 25 Mg Tab) 25 mg PO Q4H PRN PRN Reason: Anxiety Stop: 02/03/25 16:03 Magnesium Hydroxide (Magnesium Hydroxide Susp 30 Ml Udc) 30 ml PO DAILY PRN PRN Reason: Constipation Stop: 01/31/25 15:14 Last Admin: 01/02/25 09:11 Dose: 30 ml Olanzapine (Olanzapine 5 Mg Tablet) 5 mg PO Q6 PRN PRN Reason: Agitation Stop: 01/31/25 16:09 Sodium Chloride (Sodium Chloride 0.65% Na Soln 45 Ml ([employer])) 1 - 2 sprays NA PRN PRN PRN Reason: Nasal Dryness/Congestion Stop: 01/31/25 15:14 Mental Health & Subst Abuse Tx Psychiatrist Name of Psychiatrist: Howie Monroe Psychiatrist's Date Of Appointment With Psychiatric Provider: 02/02/2025 Time of Appointment with Psychiatrist: 9:30a Psychiatric Appointment Comment: $25 copay Therapist Name of Therapist: Refused therapy Aerial Photographer Name of Aerial Photographer: Refused case managment referral Post Discharge Appointments Contact Information Discharge
[2025-01-06 11:22] LABS: Marijuana Quant, GCMS Urine 209 ng/mL (<5)
--- NOTE | 2025-01-07 09:01 | Discharge Summary ---
Date of Service January 07, 2025 History of Present Illness Patient self-presented to the emergency room yesterday, reporting worsening depression and anxiety. She did report suicidal thoughts prior to admission, with no attempt. She denied having a plan or intent to harm herself, and denied any homicidal ideation. She did also report auditory hallucinations and some delusional thinking. When I met with her today, she reports the auditory hallucinations have been present for a long time, but she has never reported them to a psychiatric provider before. She has a longstanding history of bipolar disorder, and did describe both depressive and manic episodes. She does have auditory hallucinations even when euthymic. The content of those hallucinations has varied, but presently the most predominant voice is that of Scar Rod. the voice tells her that he loves her and wants to be with her romantically. She says she does believe that she is really in communication with him, but part of her knows that it is not realistic. She has other auditory hallucinations of other voices, mostly male. Some of them were telling her to kill herself. They do not tell her to hurt anyone else. She was becoming more paranoid and having difficulty sleeping as a result. Ultimately, she was driving while sleep deprived, and noticed that the "trees were dripping and turning into monsters." This prompted her to bring herself to the emergency room for further evaluation. She reports that depression has been worsening for months, as she and her partner are broke up 2 years ago. She stayed living in the same house for a year, but then "I could not take it anymore" as she left in November 2023. Since then she has been without secure housing, utilizing a combination of short-term rentals, couch surfing, and sleeping in her car. She says recently she has not been sleeping well, becoming more despondent and anhedonic. She also had a poor appetite with minimal p.o. intake this past week. She reports that although she has been sober from alcohol and opioids for 10 years, she has been using delta 8 and THC recently. She denies daily use and could not specify how frequently she would use it. She denied any other substances, illegal or [id number]. Specifically denied kratom. Patient was previously in psychiatric treatment, but was doing well and so she did not follow-up after April of this past year. She stayed on both her medications (Seroquel and Lamictal) for several months, but ultimately ran out of the Seroquel. She says she has remained on Lamictal but has been cutting it in half) so a total of 50 mg daily) up until recently. She reports she was previously on Seroquel up to 400, but they had been decreasing it and as of her last appointment she was only on 100 mg at bedtime. In the emergency room, she was given IV fluids and oral potassium supplement ation. Workup was otherwise normal. Upon admission, nurses reported patient has been superficially pleasant, but generally isolate to her room. She had no agitation overnight. She slept 8 hours. She has not yet attended groups as of this morning. P.o. intake has been poor. When I met with her this a.m., she continues to report severe depression with some thoughts of suicide, mostly in relation to the voices which tell her to kill herself. She could contract for safety, and stated she would be able to reach out to staff if the thoughts get worse. "That is why I am here." Physical Exam Psychiatric Orientation: alert, oriented x 3 and cooperative Apperance: appropriately dressed and appropriately groomed Eye Contact: good eye contact Motor Behavior: steady gait and station and no abnormal motor movements; no psychomotor agitation, no psychomotor retardation, n EPS and n akathisia Speech: normal rate/rhythm/volume of speech Affect: euthymic affect and mood congruent with affect Thought Process: goal directed thought process, linear/logical thought process and clear/coherent thought process Thought Content: reality based without delusions; no preoccupation, not paranoid and no delusions Suicidal Thoughts: denies suicidal thoughts, denies suicidal plan and denies suicidal intent Homicidal Thoughts: denies homicidal thoughts, denies homicidal plan and denies homicidal intent Hallucinations: + auditory hallucinations; no visual hallucinations Cognition: recent memory grossly intact, remote memory grossly intact, attention grossly intact and language grossly intact Estimated Intelligence: consistent with education level Insight: good insight Judgment: good judgement Vital Signs (Past 24 Hours) Last Vital Signs Temp 36.7 C 01/07/25 06:26 Pulse 76 01/07/25 06:26 Resp 18 01/07/25 06:26 BP 134/95 01/07/25 06:26 Pulse Ox 99 01/01/25 17:16 O2 Del Method Room Air 01/01/25 17:16 A physical exam was performed in the ED by Dr. Cramer for the purposes of medical clearance. I accept that physical as correct and adequate for the purposes of the inpatient physical exam. Principal Diagnosis Schizoaffective disorder, BP type Psychiatric Data See daily stay summary. In short, safety was maintained and the patient was cooperative with care. Medication changes included [] and they tolerated this well. A family session was [held] and safety plan was completed prior to discharge. Day of Discharge Assessment Today the patient voices readiness for discharge. They note improvement in mood and deny thoughts to harm self or others. Thoughts remain organized and they are improved from admission. Psychosis has improved - now only faint AH, which are not negative or command in nature. They agree to take mediations as prescribed and keep follow-up appointments. They are stable for discharge to outpatient level of care. Transition of Care Transition Of Care Record: was reviewed with the patient Advance Directives Advance Directives Information Provided: Yes Advance Directives: No Living Will: No Power of Medical Physicist: No Advance Directives Reason:: Declines as Mental Health Visit. Suicide Risk Level Suicide Risk Level: Low (q15 min observation checks) Suicide Risk Level Comments: No SI since admission. No command AH. Risk Factors Assessment Male: No : Yes Do You Have Access To A Gun?: No Health Problems: No Mental Health Diagnoses: Yes Substance Use Disorders: Yes Previous Attempt: Yes Family History of Suicide: No Previous Psychiatric Hospitalization: Yes Hopelessness: No Protective Factors Assessment : No Responsible for Young Children: No Employed: No Stable Relationships: No Supportive Family: No Good Rapport with Provider: No Discharge Data Lab Results 01/01/25 01/01/25 01/01/25 09:25 09:35 09:36 WBC 9.39 RBC 4.82 Hgb 14.1 Hct 40.8 MCV 84.6 MCH 29.3 MCHC 34.6 RDW Std Deviation 38.4 RDW Coeff of Jani 12.5 Plt Count 282 MPV 9.8 Immature Gran % (Auto) 0.2 Neut % (Auto) 70.1 Lymph % (Auto) 23.4 [place] % (Auto) 5.9 Eos % (Auto) 0.1 Baso % (Auto) 0.3 Neut # (Auto) 6.58 H Lymph # (Auto) 2.20 [place] # (Auto) 0.55 Eos # (Auto) 0.01 Baso # (Auto) 0.03 Immature Gran # (Auto) 0.02 Sodium 133 L Potassium 2.9 L Chloride 97 L Carbon Dioxide 26 Anion Gap 10 BUN 5 L Creatinine 0.69 Est Cr Clr Drug Dosing 83.8 eGFR 109.68 BUN/Creatinine Ratio 7.2 L Glucose 110 H Fasting Glucose Estimat Average Glucose Hemoglobin A1c Calcium 9.7 Total Bilirubin 1.3 H AST 21 ALT 13 Alkaline Phosphatase 50 Total Protein 8.2 Albumin 5.2 H Globulin 3.0 Albumin/Globulin Ratio 1.7 Triglycerides Cholesterol LDL Cholesterol, Calc VLDL Cholesterol, Calc HDL Cholesterol Cholesterol/HDL Ratio TSH 0.716 Urine Color Yellow Urine Appearance Clear Urine pH 7.0 Ur Specific [place] 1.003 Urine Protein Negative Urine Glucose (UA) Negative Urine Ketones Trace H Urine Blood Negative Urine Nitrite Negative Urine Bilirubin Negative Urine Urobilinogen Negative Ur Leukocyte Esterase Negative Urine Comment Salicylates < 3.0 L Urine Opiates Screen Neg Ur Methadone, Qual Neg Urine Fentanyl Screen Neg Acetaminophen < 3 L Urine Barbiturates Neg Ur Phencyclidine (PCP) Neg U Amphetamin/Meth Scrn Neg MDMA (Ecstasy) Screen Neg U Benzodiazepines Scrn Neg Ur Cocaine Metabolite Neg U Marijuana (THC) Screen Pos H U Marijuana THC Carboxy 209 H Drug Screen Comment SEE NOTE Ethyl Alcohol mg/dL < 10.0 SARS-CoV-2, RNA, NAAT NEGATIVE 01/03/25 01/04/25 07:06 07:32 WBC RBC Hgb Hct MCV MCH MCHC RDW Std Deviation RDW Coeff of Jani Plt Count MPV Immature Gran % (Auto) Neut % (Auto) Lymph % (Auto) [place] % (Auto) Eos % (Auto) Baso % (Auto) Neut # (Auto) Lymph # (Auto) [place] # (Auto) Eos # (Auto) Baso # (Auto) Immature Gran # (Auto) Sodium 142 D Potassium 3.6 D Chloride 106 Carbon Dioxide 27 Anion Gap 9 BUN 6 Creatinine 0.76 Est Cr Clr Drug Dosing 76.1 eGFR 99.03 BUN/Creatinine Ratio 7.9 L Glucose 93 Fasting Glucose 105 H Estimat Average Glucose 108 Hemoglobin A1c 5.4 Calcium 9.3 Total Bilirubin AST ALT Alkaline Phosphatase Total Protein Albumin Globulin Albumin/Globulin Ratio Triglycerides 52 Cholesterol 164 LDL Cholesterol, Calc 107 VLDL Cholesterol, Calc 10 HDL Cholesterol 47 Cholesterol/HDL Ratio 3.5 TSH Urine Color Urine Appearance Urine pH Ur Specific [place] Urine Protein Urine Glucose (UA) Urine Ketones Urine Blood Urine Nitrite Urine Bilirubin Urine Urobilinogen Ur Leukocyte Esterase Urine Comment Salicylates Urine Opiates Screen Ur Methadone, Qual Urine Fentanyl Screen Acetaminophen Urine Barbiturates Ur Phencyclidine (PCP) U Amphetamin/Meth Scrn MDMA (Ecstasy) Screen U Benzodiazepines Scrn Ur Cocaine Metabolite U Marijuana (THC) Screen U Marijuana THC Carboxy Drug Screen Comment Ethyl Alcohol mg/dL SARS-CoV-2, RNA, NAAT Hospital Course (1) Schizoaffective disorder, bipolar type: (2) Cannabis abuse: (3) Alcohol use disorder: (4) Opioid use disorder in remission: (5) Acute dehydration: Plan 01/06/2025: she is so far tolerating Abilify at the higher dose. Reminded her she can take a lower dose of Vistaril overnight if she wakes up and cannot fall back asleep. Auditory hallucinations continue to improve. Mood is euthymic and paranoia remains resolved. Continue current medications and treatment. Planning for discharge tomorrow. 01/05/25: mood and auditory hallucinations are improving. Paranoia has resolved. Increase Abilify to 10 mg for ongoing auditory hallucinations and mood stabilization. Continue Vistaril as needed for sleep, which was effective. She is off Seroquel and off Lamictal at this point. Again encourage patient to attend groups and participate to the best of her ability. Planning for discharge on Friday. 01/04/25: Discussed R/B/AE of switching to Abilify. Discussion included but was not limited to EPS, TD, and metabolic syndrome. Pt agreeable to trial. Start 5mg today, and increase to 10mg if tolerated. D/c seroquel. For sleep, discussed trazodone vs. remeron vs. vistaril. Reviewed risks, benefits and potential adverse effects of each option. Pt was previously on trazodone, which caused vivid dreams. Pt opted for vistaril - start 50mg QHS PRN, with repeat dose available if ineffective. Encouraged pt to attend groups and participate to the best of her ability. 01/03/25: Patient's BMP this morning was within normal limits- Potassium level remains stable. I did order a fasting lipid panel, fasting glucose and hemoglobin A1c for tomorrow morning, since she is going back on Seroquel. [employer] Seroquel dose is 300 to 600 mg for bipolar depression, so I am increasing the Seroquel to 200 mg tonight, and if tolerated to 300 mg the night after that. She will continue Lamictal 25 for today and then it will discontinue after tomorrow's dose. Encourage participation in programming today, and working on her treatment/safety plan for after discharge as well. Since she did successfully have a BM, I discontinued the senna and left the Colace as a stool softener only. 01/02/25: The patient was admitted to the [facility] ([facility] mental health unit) on q15 min checks (behavioral with suicide precautions) for safety. The patient will participate in group, recreational, and milieu therapies and will be offered additional individual and family sessions as clinically appropriate. -Labs/tests ordered: Repeat BMP in morning -New medications initiated: Seroquel 100 mg at bedtime, and 25 mg every 6 hours as needed anxiety or psychosis Senokot 1 tab twice daily, starting today Lamictal 25 mg daily Mental Health & Subst Abuse Tx Psychiatrist Name of Psychiatrist: Howie Monroe Psychiatrist's Date Of Appointment With Psychiatric Provider: 02/02/2025 Time of Appointment with Psychiatrist: 9:30a Psychiatric Appointment Comment: $25 copay Therapist Name of Therapist: Refused therapy Security Support Analyst Name of Security Support Analyst: Refused case managment referral Post Discharge Appointments Other #1: Name of Aftercare Appointment: [facility] - [address] [place] [address], [address], [place] [address] Phone Number of Aftercare Appointment: [phone] Aftercare Appointment Comment: Contact to self refer if interested in the future Contact Information Discharge Discharge Plan Discharge Items Patient Disposition: Home - Self-Care Reason For Visit: UNSPECIFIED PSYCHOSIS Discharge Diagnosis: Schizoaffective disorder Condition on Discharge: Fair Activity: Resume your previous activity Non-emergency contact: Primary Care Provider and Psychiatrist Call non-emergency contact if: you have any medication questions and your symptoms worsen Follow-up/Referrals: PCP,NO [Primary Care Provider] - Diet: Regular Addtl Attending Provider Instructions: SPECIAL CARE INSTRUCTIONS: 1. Follow through with your scheduled aftercare appointments. If unable to keep an appointment, please call to reschedule. 2. Take your medication only as prescribed. Medication should not be changed or stopped without the approval of your doctor. In the event of worsening symptoms or concerns about side effects, contact your doctor immediately. 3. Utilize new healthy coping skills, anger management skills, and stress management skills learned during your hospitalization. Journal feelings and process them with a support person. Identify stressors or situations that may result in relapse, deterioration or inappropriate behaviors and develop a plan to deal with those issues. 4. If your coping skills are ineffective and you are in crisis, contact your outpatient providers for direction. If unable to reach your providers, please call the [facility] CRISIS LINE AT , go to the [facility] walk-in center at [address], [place], or go to the closest Emergency Room. 5. Avoid alcohol and un-prescribed drugs. 6. You have been provided with the Mental Health Advance Directives Pamphlet for your review. 7. Your condition is stable for discharge to outpatient level of care, but recovery is an ongoing process. Ifthoughts to harm yourself or others return, follow the safety plan developed during your stay. Planning for a safe return home includes securing weapons. Our treatment team recommends weaponsbe removed from the home until your outpatient provider reassesses your progress. In rare cases where the items themselvescannot be removed, guns and ammunitionshould be secured separatelyand keys stored by a reliable personoutside of the home. If you were admitted on an involuntary commitment, the police or other legal authorities may be involved in this process. AFTERCARE APPOINTMENTS: * Please call your insurance company prior to your scheduled appointment to confirm your aftercare providers are covered. Take your insurance information to your appointments. WHO TO CALL AND WHEN: Medical Emergencies: For questions or emergencies related to your hospital stay, please contact the Inpatient Behavioral Health Unit at [phone]. A pre billing clinician is on-call 04/11 for the Behavioral Health Unit for emergencies At any time you feel your situation is an emergency, you may also call 911 immediately. Pending Studies at Discharge: No Stand-Alone Forms: [facility], Smoking Cessation Medications and DC Order Prescriptions: New aripiprazole [Abilify] 10 mg Tablet 10 mg PO QAM 30 Days Qty: 30 0RF hydroxyzine HCl 25 mg Tablet 50 mg PO HSZ PRN (Reason: anxiety or insomnia) 30 Days Qty: 60 0RF Discontinued Multivit/Min/Iron/Fol Ac/Pren ( Vitamin) tablet Qty: 0 Valacyclovir (Valtrex) 500 MG tablet Qty: 0 Acetaminophen (Tylenol) 325 MG tablet Qty: 0 Ibuprofen (Advil) 200 MG tablet Qty: 0 Discharge Orders: Discharge Order (Routine); Ordered 01/07/25 Ordered By: Caty Sierra Admission Data Admit Date/Time: 01/01/25 15:15 Attending Provider: Caty Sierra Admit Provider: Caty Sierra Primary Care Provider: PCP,NO Coding Level of Care Code 09192 D/C day mgmt 30 min or < Diagnoses Schizoaffective disorder, bipolar type F25.0 Cannabis abuse F12.10 Alcohol use disorder F10.90 Opioid use disorder in remission F11.91 Acute dehydration E86.0
== END 2025-01-07 13:35 | disposition home or self-care (01) | DRG 885 ==
LOC: ED 09:11 → 3S 15:15 → ED 15:34 → 3S 01-06 16:03